=== PATIENT | female | born 1995 | race Caucasian/White ===

== ENCOUNTER 2016-10-09 06:31 | Inpatient (IN) | payer OTHER ==
[~2016-10-09] VITALS: Ht 157.5 cm; Wt 78.0 kg
[~2016-10-09 06:31] MED LIST: PROM25SU46 RC
[2016-10-09] MEDS ORDERED: Sodium Chloride LOK Flush 10 mL Syringe IVFLUSH PRN (06:55)
[2016-10-09] MEDS ORDERED: Oxytocin 30 Units/500 mL LR 30 UNITS in IV Premix 1 EACH IV PRN ×2 (06:55→18:25)
[2016-10-09] MEDS ORDERED: Methylergonovine 0.2 mg/mL Inj IM PRN ×2 (06:55→18:25)
[2016-10-09] MEDS ORDERED: Oxytocin 10 Unit/mL Inj IM PRN ×2 (06:55→18:25)
[2016-10-09] MEDS ORDERED: Carboprost 250 mCg/mL Inj IM PRN ×2 (06:55→18:25)
[2016-10-09] MEDS ORDERED: Lactated Ringer's 1,000 ML IV PRN (06:55)
[2016-10-09] MEDS ORDERED: Hemorrhage Kit, Post Partum XX ONE ×2 (06:55→18:25)
--- NOTE | 2016-10-09 07:12 | PCM.HPOB ---
Subjective Date of Service: Oct 09, 2016 Referring Provider: Admitting Physician: Ashli Dewitt MD Primary Care Physician: Filiberto Valdovinos DO Attending Physician: Ashli Dewitt MD Chief Complaint Contractions and leakage History of Present History of Present Illness This is a 20-year-old, G1, P0 female who is presenting at 38 weeks 6 days gestational age with an EDC of October 17, 2016 by 16 week ultrasound complaining of contractions and leakage. Patient was seen yesterday in clinic but declined cervical check. She is isaias regularly every 2 minutes and is requesting epidural for pain control. is complicated by marijuana and tobacco use and complicated social situation. Patient is currently in high school and does not have stable living situation. laboratory data shows blood type is O+, antibody negative, varicella immune, rubella nonimmune, RPR nonreactive, hep B surface antigen negative, HIV nonreactive, and GBS negative. Quad screen showed an elevated os B but patient did not complete lab until 32 weeks. Therefore, elevation thought to be due to lab error due to dating. Ultrasound showed normal spine on 06/13/16. OB History: Term Past Medical History Obstetrical History: Medical History: Tobacco use disorder Daily marijuana use Surgical History: None Social History: Unstable living and social situation. Mother 4 years ago and since has had unreliable housing. Hx Tobacco Use: Yes Smoking Status: Current Every Day Smoker (10 cigarettes a day) Years of Smokin Hx Alcohol Use: No Hx Substance Use: Yes (marijuana use) Past Family History Living Arrangement: Other (unstable housing situation) Genetic Screening/Counseling Genetic Screening/Counseling: Positive (Quad screen not completed until 32 weeks but showed elevated OSB. Abnormality thought to be due to dating error as US showed no spine abnormalities.) Review of Systems Constitutional: Y: Pain, Change of appitite, Chills, Fever, Malaise, Weakness, Weight loss Eyes: Denies: Blurred Vision, Conjunctive Inflammation, Double Vision, Eyelid Inflammation, Other, Pain, Redness, Vision Changes ENT: Denies: Dental Problems, Dysphagia, Ear Discharge, Ear Pain, Hoarseness, Membranes Dry, Nasal Congestion, Nose Discharge, Nose Pain, Other, Throat Pain, Tinnitus, Ulcers/Sores in Mouth Cardiovascular: Denies: Chest Pain, Edema, Orthopnea, Other, Palpitations, SOB while laying flat Genitourinary: Denies: Anuria, Change in Frequency, Dysuria, Hematuria, Incontinence, Nocturia, Other, Retention Musculoskeletal: Reports: Back Pain, Swelling, Denies: Redness Skin/Breasts: Denies: Mastalgia, Rash Skin: Denies: Rash Neurological: Denies: Change in Speech, Confusion, Dizziness, Incoordination, Numbness, Other, Seizures, Somnolence, Tremors, Weakness Psychologic: Reports: Nervousness Hematologic: Denies: Abnormal bleeding, Adenopathy, Bruising, Other Medications Home medications None Allergy Coded Allergies: No Known Allergies (Unverified , 02/16/16) Exam Vital Signs Objectively at time of admission her vitals are stable. Constitutional: Well-developed, Well-nourished, Normal habitus HEENT: Atraumatic, PERRLA, Scleral Anicteric, Mucous Membr Moist/[place] Lungs: Clear to Auscultation, Normal Air Movement Heart: Exam Unremarkable Abdomen: Gravid, Normal bowel sounds, Soft Lymphatic: Normal: Neck Palpation of Nodes Extremities: Pulses Palpable x4, Edema Neurological/Psychiatric: Alert, Oriented X3, Mild Distress Neuro: Grossly Neurologically Intact Additional Information Tocometry shows heart rate of 140 at baseline with moderate variability. Category 1 strip. Contractions present every 2-3 minutes. Cervix dilated at 7 cm. Labs/Diagnostics Labs CBC Test 10/09/16 07:20 White Blood Count 16.3th/mm3 (3.8-10.1) Red Blood Count 4.25mil/mm3 (3.90-5.20) Hemoglobin 11.8g/dL (12.0-15.6) Hematocrit 36.2% (35.0-46.0) Mean Corpuscular Volume 85.2fL (81-100) Mean Corpuscular Hemoglobin 27.8pg (27.0-35.0) Mean Corpuscular Hemoglobin Concent 32.6% (32.0-37.0) Red Cell Distribution Width 13.9% (12.3-15.4) Platelet Count 262bil/L (150-400) UDS pending Maternal Blood Type: O Hx Rho(D) Immune Globulin: No Antibody Screen: negative Group B Strep Results: Negative Previous with GBS: No Rubella: Non-Immune (22.6 or) OB Intrapartum Assessment/Plan Assessment 20-year-old at 38 weeks 6 days gestational age with an EDC of October 17, 2016 presenting with regular contractions and cervical dilation of 7 cm. Pain Evaluation: Other (epidural ordered) Intrapartum plan This is a 20-year-old at 38 weeks 6 days gestational age with an EDC of October 17, 2016 presenting with regular contractions and cervical dilation of 7 cm. Shortly after admission epidural was placed, membranes have not ruptured, but she is isaias well on her own. At this point in time, we will anticipate a successful vaginal . Continue with routine monitoring. Attending Statement I saw and evaluated patient. Agree with above plan We will observe labor progress at this time. SOHAM VALLECILLO DO Oct 09, 2016 07:12 Kari Person MD Oct 26, 2016 12:25
--- NOTE | 2016-10-09 07:24 | PCM.HPANE ---
Patient Data Surgeon Admitting Provider:Ashli Dewitt MD Attending Provider:Ashli Dewitt MD Primary Care Physician:Filiberto Valdovinos DO Other Provider: Reason for Visit Term Labor TERM LABOR Ht/WT & BMI Body Mass Index Allergies Coded Allergies: No Known Allergies (Unverified , 02/16/16) Medications Active Scripts Promethazine HCl (Phenergan)25 Mg Supp.rect25 Mg RC TID #20 SUPP Prov:Fredy Roque MD 02/17/16 Reported Medications Vit W-Ca,Fe,FA(<1 mg) ( Vitamins)1 Each Tablet1 Each PO DAILY 10/09/16 History Hx Substance Use: Yes (marijuana use) Smoking Status: Current Every Day Smoker (10 cigarettes a day) Stop/Bang Risk Assessment Category Category 1A: Patient has history of documented sleep apnea, and HAS NOT received any narcotic, sedative or anesthesia administration during this stay. Category 1B: Patient has history of documented sleep apnea, and HAS received any narcotic , sedative or anesthesia administration during this stay Category 2: Patient has SUSPECTED Obstructive Sleep Apnea, and HAS received any narcotic , sedative or anesthesia administration during this stay. Category 3: Patient has SUSPECTED Obstructive Sleep Apnea and HAS NOT received narcotic, sedative or anesthesia administration during this stay. Category 4: Outpatient in Procedural Areas with known sleep apnea or who screen positive for High Risk via the STOP/BANG questionnaire. Exam Exam General Appearance: Alert, Oriented X3, Cooperative, No Acute Distress HEENT/AIRWAY: MP 2 Lungs: Clear to Auscultation, Normal Air Movement Heart: Exam Unremarkable, Regular Rate/Rhythm, No Murmurs/Rubs/Gallops Plan Impression Patient chart reviewed, patient interviewed and anesthestic plan with risks, benefits, and alternatives discussed, and informed consent obtained. ASA Physical Status: ASA2 Mod Systemic Disease Anesthetic Plan: Epidural Bene/Risks/Altern/Consents: Yes HP Complete Prior to Induction: Yes Va Andersen MD Oct 09, 2016 07:24
[2016-10-09 07:39] LABS: Mean Corpuscular Hemoglobin 27.8 pg (27.0-35.0); Mean Corpuscular Volume 85.2 fL (81-100)
[2016-10-09] MEDS ORDERED: fentaNYL 2 mCg/mL-Bupivicaine 0.125% 100 mL Premix EPIDURAL ONE (07:42)
[2016-10-09] MEDS ORDERED: PREN1TAB87 PO (07:46)
[2016-10-09] MEDS ORDERED: Lactated Ringer's 500 ML IV ONE (08:47)
[2016-10-09] MEDS ORDERED: Lactated Ringer's 1,000 ML IV SCH ×2 (08:47→18:21)
[2016-10-09] MEDS ORDERED: EPHEDrine Sulfate 50 mg/mL Inj IVPUSH PRN (08:50)
[2016-10-09] MEDS ORDERED: Atropine 1 mg/10 mL (Code) Syringe IVPUSH PRN (08:50)
[2016-10-09] MEDS ORDERED: Ondansetron 2 mg/mL 2 mL Inj IVPUSH PRN (08:50)
[2016-10-09] MEDS: fentaNYL 2 mCg/mL-Bupiv 0.125% 100 ML EPIDURAL SCH ×2 (10:19→14:38)
[2016-10-09] MEDS ORDERED: Bupivacaine-MPF 0.25% 30 mL Inj ONE (10:35)
--- NOTE | 2016-10-09 13:31 | NUR ---
Infection Prevention Patient with apparent non-weeping herpes zoster lesions across abdomen and left flank. Contact precautions initiated for staff and all visitors.Hand hygiene upon entry to room and upon leaving room discussed with family and visitors. Visitors to be limited to two at a time. Dr. Dolan, Infectious Disease consulted regarding patient management on Family location. Dr. Lindy Gardner notified for management of .
[2016-10-09] MEDS ORDERED: Sodium Chloride LOK Flush 10 mL Syringe IVFLUSH SCH (16:30)
[2016-10-09] MEDS ORDERED: LANOlin HPA 7 Gm Ointment TOPICAL PRN (18:25)
[2016-10-09] MEDS ORDERED: Witch Hazel-Glycerin Pads TOPICAL PRN (18:25)
--- NOTE | 2016-10-09 19:32 | OP ---
[address] [address] OPERATIVE REPORT PATIENT: JOHN MCCLAIN : 1995 MR#: [id number] ADMIT: 10/09/2016 JOB ID: [id number] DATE OF SURGERY: 10/09/2016 SURGEON: Kari Person MD PREOPERATIVE DIAGNOSIS(ES): POSTOPERATIVE DIAGNOSIS(ES): DELIVERY NOTE: This is a 20-year-old female. She is 1, para 1, now at 39 weeks. She was admitted to [facility] for active labor. She was noticed to be 7-8 cm dilated and AROM was performed, and with contraction noted the head goes to -1 station. She was isaias every 3 minutes with category 1 tracing. At that time the nurse mentioned that she has rashes on her abdomen and her back. We examined together and also discussed with slotter operator helper. The rash was patches with a small pedicles and spread as the belt distribution from her abdomen to her back. Clinically likely to be shingles. The PCR and culture obtained. The slotter operator helper, Dr. Gardner, discussed with the neonatalist, and that after the delivery there is no speciall separation and isolation needed between mom and baby. The precaution does need to cover the lesion and she can continue for breast feeding. For standard precaution for shingles will also cover the lesions and have gowned whoever enters the labor room. The patient has been 8 cm with no progress for 4 hours. At that time IUPC was placed and Pitocin started. With Pitocin patient had better contraction and she progressed to full dilation. Her heart tracings are reassuring. The patient was instructed to push after she was fully dilated and had a feeling to push. She has a good effort to push. During examination there is also noticed that there are some rash lesions both of inner thighs. The right side looks more subsiding and the left side looks more fresh. There is no lesion noticed in her vagina or cervix. The eventually was delivered at ANU position. The shoulder and chest delivered without difficulty. The infant was placed on mother's chest with no direct contact to the skin. Cord clamped and cut. Cord blood collected. Placenta delivered spontaneously completely, and examined with three-vessel cord. Uterus well contracted after the placenta delivered. There was no laceration noticed on her perineum. The EBL during the procedure was 150 mL. score of the nine and nine. This is a female . Weight was not available at dictation. After the delivery, I discussed with patient about the vesicles. At this time, I am not certain about diagnosis. Planning to do a biopsy with local anesthesia besides her epidural. The patient agreed for this and about 1 mL of lidocaine injected into the base of one vascular likely vascular lesion and about 4-5 mm lesion was removed and sent for pathology. BONNIE
[2016-10-09] MEDS: Benzocaine (Dermoplast) 20% 60 Gm Spray TOPICAL PRN (20:25)
--- NOTE | 2016-10-09 23:16 | PCM.ANEP1 ---
Post Anesthesia Phase 1 PACU Phase 1 Assessment Date of Service: Oct 09, 2016 Anesthetic Administered: Epidural Level of Alertness: Awake, talking BROWN's with Equal Strength: Yes Pain: No Pain Scale Score: 0 Nausea or Vomiting: No Oxygen Delivery: Room Air Lungs: Clear to Auscultation, Normal Air Movement Va Andersen MD Oct 09, 2016 23:16
--- NOTE | 2016-10-09 23:17 | PCM.ANEP2 ---
Post Anesthesia Evaluation ASA/CMS Post Anesthesia VS in Patient's Normal Range?: Yes Resp Stable; Airway Patent?: Yes CV Function & Hydration Stable: Yes Mental Status Recovered?: Yes Pain control Satisfactory?: Yes N/V Control Satisfactory?: Yes Va Andersen MD Oct 09, 2016 23:16
[2016-10-10 07:03] LABS: Mean Corpuscular Hemoglobin 27.6 pg (27.0-35.0); Mean Corpuscular Volume 85.5 fL (81-100)
[2016-10-10] MEDS ORDERED: FERR-83 PO (07:51)
[2016-10-10] MEDS ORDERED: ASCO-294 PO (07:51)
[2016-10-10] MEDS ORDERED: IBUP-1827 PO (07:51)
[2016-10-10] MEDS ORDERED: DOCU-41 PO (07:51)
--- NOTE | 2016-10-10 07:58 | PCM.DIOB ---
SOHAM VALLECILLO 10/10/16 0751: Obstetrical Disch Instruction Date of Service: Oct 10, 2016 Dates of Hospitalization Date of Hospital Admission Oct 09, 2016 at 06:49 Providers Admitting Physician: Ashli Dewitt MD Primary Care Physician: Caron Attending Physician: Ashli Dewitt MD Discharge Diagnosis Discharge Diagnosis 1. 20 year old female post day 1 after spontaneous vaginal delivery. 2. Suspected herpes zoster. Awaiting biopsy results. Problems: Diet Discharge Diet: No restrictions Activity Discharge Activity-General: Pelvic Rest for 6 weeks, Be up and about, Balance rest and activity, Activity as energy allows Dressing and Incisional Care Hygiene: May shower, Perineal care Additional Instructions Discharge Instructions Continue your vitamin. Please take the iron and vitamin c together for your anemia. Do not take more pain medication (Ibuprofen) than is necessary -- less is better. Iron can give you constipation so you have also been given a prescription for docusate to keep you regular. Be sure to follow up in [address] [facility]. Pelvic rest for 6 weeks (nothing per vagina including intercourse, tampons) If you have a fever greater than 100.4, please call [facility]. There is always someone electrification adviser to talk to. If you have an increase in bleeding, call [facility]. If you have a lot of bleeding suddenly, especially if you have symptoms of dizziness & weakness with it, get emergency help. If you start experiencing extreme depression, especially if you feel that you are a danger to yourself or your family, seek emergency help. You have been through a lot -- BE SURE TO TAKE CARE OF YOURSELF. You have been sent home with the following prescriptions: - Valacyclovir 100 mg three times a day to complete a 7 day course. 7 day course will be completed on 10/16/16. - Colace 100 mg twice a day as needed for constipation - Ferrous sulfate 325 mg daily - Vitamin C 500 mg daily. Take with iron - Ibuprofen 600mg take 1 tab every 8 hours as needed for pain Follow Up Plan Follow-up Provider (F9): Ashli Dewitt MD Follow-up appointment: Weeks (6) Call your provider for: Fever or Chills, Shortness of breath, Heavy vaginal bleeding, Epigastric pain, Excessive constipation, Vaginal discomfort, Red painful breasts Shazia Harper DO 10/11/16 0743: Obstetrical Disch Instruction Date of Service: Oct 11, 2016 Discharge Diagnosis Discharge Diagnosis 20 year old female post day 2 after spontaneous vaginal delivery. Herpes zoster outbreak (shingles). Awaiting biopsy results. Patient is on Acyclovir. Patient has to stay one more night d/t complicated social situation. Patient has been discharged on 10/11/16. Patient and the baby will be going to her sister to live with her for a week or two and then she and the baby will be moving in with her grandparents. Problems: SOHAM VALLECILLO DO Oct 10, 2016 07:51 Shazia Harper DO Oct 11, 2016 07:43
[2016-10-10] MEDS ORDERED: VALA500T2 PO (09:48)
--- NOTE | 2016-10-10 09:59 | PCM.DC.OB ---
Obstetrical Discharge Summary Date of Service Oct 10, 2016 Date of hospital admission Oct 09, 2016 at 06:49 Date of Discharge: Oct 11, 2016 Providers Admitting Physician: Ashli Dewitt MD Primary Care Physician: Caron Attending Physician: Ashli Dewitt MD Diagnosis at Time of Discharge 1. 20 year old female post day 1 after spontaneous vaginal delivery. 2. Suspected herpes zoster. Awaiting biopsy results. Problems: Invasive procedures Vaginal biopsy of vesicle. Date of Procedure: Oct 09, 2016 Pathology Pending. Patient will be called with results. Brief History and Physical: This is a 20-year-old, female who is presenting at 38 weeks 6 days gestational age with an EDC of October 17, 2016 by 16 week ultrasound complaining of contractions and leakage. Patient was seen yesterday in clinic but declined cervical check. She is isaias regularly every 2 minutes and is requesting epidural for pain control. is complicated by marijuana and tobacco use and complicated social situation. Patient is currently in high school and does not have stable living situation. laboratory data shows blood type is O+, antibody negative, varicella immune, rubella nonimmune, RPR nonreactive, hep B surface antigen negative, HIV nonreactive, and GBS negative. Quad screen showed an elevated os B but patient did not complete lab until 32 weeks. Therefore, elevation thought to be due to lab error due to dating. Ultrasound showed normal spine on 06/13/16. Vitals within normal limits. Constitutional: Well-developed, Well-nourished, Normal habitus HEENT: Atraumatic, PERRLA, Scleral Anicteric, Mucous Membr Moist/[place] Lungs: Clear to Auscultation, Normal Air Movement Heart: Exam Unremarkable Abdomen: Gravid, Normal bowel sounds, Soft Extremities: Pulses Palpable x4, Edema Neurological/Psychiatric: Alert, Oriented X3, Mild Distress Neuro: Grossly Neurologically Intact Hospital Course: Patient is day one after spontaneous vaginal delivery. Upon delivery it was noted that she had vesicles on her back, left chest wall and abdomen suspicious for herpes zoster. Biopsies were taken and results are pending. Patient was started on valacyclovir 100 mg 3 times a day to complete a 7 day course. Patient and baby are doing well. Patient is breast-feeding exclusively. She is having minimal pain that is well controlled with ibuprofen as needed. No plans for contraception at this point. She will discuss at her visit. Tolerating oral intake without nausea and vomiting and ambulating without difficulty. Ascorbate Calcium (Vitamin C) 500 Mg Tablet 500 MG PO DAILY Prescribed by: SOHAM VALLECILLO DO Docusate Sodium (Colace) 100 Mg Capsule 100 MG PO BID PRN PRN For Constipation Prescribed by: SOHAM VALLECILLO DO Ferrous Sulfate (Ferrous Sulfate) 325 Mg Tablet 325 MG PO DAILY Prescribed by: SOHAM VALLECILLO DO Ibuprofen (Ibuprofen) 600 Mg Tablet 600 MG PO Q6H PRN PRN For Mild Pain Prescribed by: SOHAM VALLECILLO DO Vit W-Ca,Fe,FA(<1 mg) ( Vitamins) 1 Each Tablet 1 EACH PO DAILY (Reported) Last Taken: Unknown Dose on 10/08/16 Promethazine HCl (Phenergan) 25 Mg Supp.rect 25 MG RC TID Prescribed by: ROJELIO SIN MD Valacyclovir HCl (Valtrex) 1,000 Mg Tablet 1,000 MG PO TID Prescribed by: SOHAM VALLECILLO DO Discharge Medications: - Valacyclovir 100 mg three times a day to complete a 7 day course. 7 day course will be completed on 10/16/16. - Colace 100 mg twice a day as needed for constipation - Ferrous sulfate 325 mg daily - Vitamin C 500 mg daily. Take with iron - Ibuprofen 600mg take 1 tab every 8 hours as needed for pain Follow-up plan Follow-up in 6 weeks with [facility]. Discharge Diet: No restrictions Discharge Activity-General: Pelvic Rest for 6 weeks, Be up and about, Balance rest and activity, Activity as energy allows Patient instructions Continue your vitamin. Please take the iron and vitamin c together for your anemia. Do not take more pain medication (Ibuprofen) than is necessary -- less is better. Iron can give you constipation so you have also been given a prescription for docusate to keep you regular. Be sure to follow up in 6 weeks at [facility]. Pelvic rest for 6 weeks (nothing per vagina including intercourse, tampons) If you have a fever greater than 100.4, please call [facility]. There is always someone mohs surgeon/general dermatologist to talk to. If you have an increase in bleeding, call [facility]. If you have a lot of bleeding suddenly, especially if you have symptoms of dizziness & weakness with it, get emergency help. If you start experiencing extreme depression, especially if you feel that you are a danger to yourself or your family, seek emergency help. You have been through a lot -- BE SURE TO TAKE CARE OF YOURSELF. You have been sent home with the following prescriptions: - Valacyclovir 100 mg three times a day to complete a 7 day course. 7 day course will be completed on 10/16/16. - Colace 100 mg twice a day as needed for constipation - Ferrous sulfate 325 mg daily - Vitamin C 500 mg daily. Take with iron - Ibuprofen 600mg take 1 tab every 8 hours as needed for pain SOHAM VALLECILLO DO Oct 10, 2016 09:59 Shazia Harper DO Oct 11, 2016 07:37
[2016-10-10] MEDS ORDERED: VALA1000 PO (11:59)
--- NOTE | 2016-10-10 14:36 | NUR ---
Social Work Note D/A: Pt is a 20 year old female who gave to BG on 10/09/2016. Pt reported that she currently lives with a friend in [place] but plans to discharge to her sister's home in [place] with BG. Pt indicated that she has everything that she will need to care for BG including a car seat and a bassinet. Pt explained that her sister is allowing her to stay in her home for a week while Pt searches for more permanent housing. Pt reported that she is enrolled in [employer], [employer] and [employer]. Pt explained that BG is her first child and so she has had no previous CPS involvement. Pt denied any history of DV. Pt admitted to daily THC use throughout her . Pt reported that she generally smokes 2-3 times a day to manage nausea and pain. Pt indicated that she last used THC about two days ago. Pt and BG both had positive results on their UDS and a cord stat has been sent for further testing. PT reported a history of anxiety with no psychiatric hospitalizations. Pt indicated that she is not currently enrolled in outpatient mental health treatment and explained that she is not taking psychiatric medications because she feels that her symptoms are minimal and do not require treatment. Pt denied any legal history. Pt indicated that she is unsure of the identity of FOB. Pt's boyfriend was in the room with her and explained that he has been living with Pt throughout her . Pt's boyfriend is Juan Valencia. Juan explained that he intends to be involved and available to assist in caring for BG when needed. Pt indicated that she has supportive siblings and friends in the immediate area who will also be available to assist in caring for BG if needed. Pt reported no other needs at this time. P:Pt reported a supportive group of family and friends in the area. Pt is enrolled in appropriate social work specialist. Pt admitted to regular THC use throughout her . EDGE B[employer]ING [employer] BEARER explained that this would prompt a call to CPS and Pt indicated that she understood. staff home therapy rn reported that Pt has been needing frequent prompts to care for BG throughout her stay in the hospital. staff home therapy rn expressed concerns regarding Pt's social situation. staff home therapy rn reported that they requested that Pt not be discharged today to provide more time for education on caring for BG and further observation of Pt's interactions with BG. ED[employer]ER spoke with C MD Wilkinson who indicated that Pt would not be discharged until 10/11/2016 due to RN concerns. EDGE B[employer]ER called CPS to provide the above information. Vanessa Huitron with CPS indicated that she felt that there was enough concern for the case to screen in for further investigation. Vanessa did not advise a hold at this time. Elham Hawthorne, ALFREDO, AAC
[2016-10-11] MEDS: Benzocaine (Dermoplast) 20% 60 Gm Spray TOPICAL PRN (06:05)
[2016-10-11 09:30] VITALS: BP 136/68; PULSE 66; RESP 16
--- NOTE | 2016-10-11 16:32 | PATH ---
SURGICAL PATHOLOGY Attending Physician:Kari Person MD CASE STATUS: Signed Out PATIENT NAME: JOHN MCCLAIN PID: [id number] : 1995 DATE COLLECTED:10/09/2016 00:00 SPECIMEN: Skin, biopsy CLINICAL HISTORY: VESICULAR RASH ON BOTH THIGH 1). RIGHT INNER THIGH BIOPSY FINAL DIAGNOSIS: SKIN, RIGHT INNER THIGH, BIOPSY: EDEMA WITH MILD SUPERFICIAL PERIVASCULAR DERMATITIS. FEATURES OF VARICELLA ZOSTER VIRUS INFECTIONS ARE NOT SEEN IN THE INITIAL SECTIONS. PENDINGVZV IMMUNOHISTOCHEMICAL STAIN. ICD10 CODE: R21 THIS CASE HAS BEEN REVIEWED BY DR. Yuniel SALINAS, BOARD-CERTIFIED DERMATOPATHOLOGIST. WANDA, 10/11/2016 NOTE: The features seen so far are not specific. They may represent a drug reaction.Diagnosticfeatures of VZV infectionsare not seen,therefore shingles is unlikely but we will perform additional immunohistochemical stains to further rule out shingles. These are send out tests, which will take longer to complete. GROSS DESCRIPTION: The specimen is received in one container not labeled as to the fixative and labeled with the patient's name, sublabeled "RT inner thigh" and consists of a 0.4 x 0.3 x 0.2 CM jefferson-carvalho portion of tissue. The specimen is inked blue, bisected and entirely submitted in one cassette. 10/10/2016 [facility] ICD-9 CODES: CPT CODES: 1: 66092 Electronically Signed Out Maria Teresa Sethi M.D.,[facility] [address], [place] [address] Technical component performed at [facility], [facility] [address], [place], [address]
== END 2016-10-11 10:36 | disposition home or self-care (01) | DRG 560 ==
LOC: FBCO 06:31 → FBC 06:49
PROVIDERS: ADMIT Obstetrics & Gynecology; ATTEND Obstetrics & Gynecology
PROC: 10E0XZZ Delivery of Products of Conception, External Approach (ICD-10-PCS; principal; 2016-10-09)
PROC: 10907ZC Drainage of Amniotic Fluid, Therapeutic from Products of Conception, Via Natural or Artificial Opening (ICD-10-PCS; 2016-10-09)
PROC: 10H073Z Insertion of Monitoring Electrode into Products of Conception, Via Natural or Artificial Opening (ICD-10-PCS; 2016-10-09)
DX: O98.52 Other viral diseases complicating childbirth (principal); O99.323 Drug use complicating pregnancy, third trimester; B02.9 Zoster without complications; Z3A.38 38 weeks gestation of pregnancy; O99.333 Smoking (tobacco) complicating pregnancy, third trimester; F17.210 Nicotine dependence, cigarettes, uncomplicated; F12.10 Cannabis abuse, uncomplicated; Z37.0 Single live birth